=== PATIENT | female | born 1980 ===

== ENCOUNTER 2020-12-02 16:23 | Emergency (ER) | payer SELFPAY ==
[~2020-12-02] VITALS: Ht 160 cm; Wt 59.1 kg
[2020-12-02 16:31] VITALS: BP 114/84; Ht 160 cm; Wt 59.1 kg
[2020-12-02 16:57] LABS: BASOPHILS 0.8 % (0-2); EOSINOPHILS 3.5 % (0-7); HEMATOCRIT 34.7 % (36.0-48.0); HEMOGLOBIN 11.2 g/dL (12-16); MCH 26.7 pg (26.0-34.0); MCHC 32.3 g/dL (31.0-37.0); MCV 82.7 fL (80.0-100.0); MEAN PLATELET VOLUME 7.3 fL (7.4-10.4); MONOCYTES 7.1 % (2-11); NEUTROPHILS 72.6 % (40-80); PLATELET COUNT 338 10x3/uL (130-400); RDW 17.7 % (11.5-14.5)
[2020-12-02 17:04] LABS: CALC OSMOLALITY 281 mosm/kg (275-300); CALCIUM 8.6 mg/dL (8.5-10.1); CARBON DIOXIDE 26.2 mmol/L (21.0-32.0); CHLORIDE - SERUM 107 mmol/L (98-107); CREATININE - SERUM 0.7 mg/dL (0.6-1.3); GLUCOSE 93 mg/dL (74-106); POTASSIUM - SERUM 3.9 mmol/L (3.5-5.1); SODIUM 141 mmol/L (136-145); UREA NITROGEN 14 mg/dL (7-18); eGFR NON AFRICAN AMERICAN > 90 mL/min (90-120)
[2020-12-02 17:10] LABS: ALBUMIN 3.4 g/dL (3.4-5.0); ALKALINE PHOSPHATASE 43 U/L (30-120); ALT (SGPT) 14 U/L (10-68); BILIRUBIN - TOTAL 0.12 mg/dL (0.2-1.3); MAGNESIUM - SERUM 1.9 mg/dL (1.8-2.4); PROTEIN - SERUM 6.7 g/dL (6.4-8.2)
[2020-12-02 17:13] LABS: ACETAMINOPHEN < 10.0 ug/mL (10.0-30.0)
[2020-12-02 18:14] LABS: BACTERIA FEW HPF (<MOD); BILIRUBIN NEGATIVE (NEGATIVE); KETONE NEGATIVE mg/dL (< 1+); NITRITE NEGATIVE (NEGATIVE); SQUAMOUS EPITHELIAL 6 HPF (0-4); UROBILINOGEN NORMAL mg/dL (< 2); WHITE CELLS - URINE 1 HPF (0-4)
[2020-12-02 18:15] LABS: UDS - AMPHET NEGATIVE QUAL (NEGATIVE); UDS - BARB NEGATIVE QUAL (NEGATIVE); UDS - BENZO NEGATIVE QUAL (NEGATIVE); UDS - COCAINE NEGATIVE QUAL (NEGATIVE); UDS - OPIATE NEGATIVE QUAL (NEGATIVE); UDS - PCP NEGATIVE QUAL (NEGATIVE); UDS - THC POSITIVE QUAL (NEGATIVE)
--- NOTE | 2020-12-02 19:00 | NUR ---
dr. Gonsales notified and reviewed pt's behavior and assessment results. pt is a moderate risk per dr. gonsales. Dr. Gonsales stated to give resources to pt at time of discharge. no further orders at this time. resources reviewed with pt and she verbalized understanding. pt stated in the last month she had no SI thoughts.
== END 2020-12-02 20:30 | disposition left against medical advice (07) ==
LOC: D.ER 16:23
PROVIDERS: Family Medicine
DX: R45.851 Suicidal ideations (principal); Z53.29 Procedure and treatment not carried out because of patient's decision for other reasons